=== PATIENT | male | born 1980 | race Caucasian/White ===

== ENCOUNTER 2020-05-02 05:19 | Emergency (ER) | payer OTHER | END 2020-05-02 18:01 | LOC: ED 05:19 | DX: Z02.89 Encounter for other administrative examinations (principal) ==

== ENCOUNTER 2020-05-02 05:19 | Emergency (ER) | payer SELFPAY ==
[~2020-05-02] VITALS: Ht 162.6 cm; Wt 72.6 kg
[2020-05-02 05:31] VITALS: Ht 162.6 cm; Wt 72.6 kg
[2020-05-02 07:49] LABS: BASOPHIL % 0.6 % (0.2-1.5); PLATELET COUNT 226 x10^3mcL (152-348); RED CELL DISTRIBUTION WIDTH 13.7 % (12.1-16.2)
[2020-05-02 07:59] LABS: CALCIUM 8.5 mg/dL (8.5-10.1); CARBON DIOXIDE 26.5 mmol/L (21-32); CHLORIDE SERUM 104 mmol/L (98-107); CREATININE SERUM 0.6 mg/dL (0.7-1.3); GFR1 > 60 mL/min; GLUCOSE SERUM 108 mg/dL (74-106); POTASSIUM SERUM 3.6 mmol/L (3.5-5.1); SODIUM SERUM 141 mmol/L (136-145)
[2020-05-02 08:05] LABS: ALBUMIN 4.2 g/dL (3.4-5.0); ALKALINE PHOSPHATASE 82 U/L (46-116); ALT/SGPT 53 U/L (16-63); AST/SGOT 30 U/L (15-37); BILIRUBIN TOTAL 0.7 mg/dL (0.20-1.00); TOTAL PROTEIN, SERUM 7.4 g/dL (6.4-8.2)
[2020-05-02 10:56] LABS: AMPHETAMINE QUAL UR NONE DETECTED (See below)
[2020-05-02 18:01] VITALS: BP 126/81
== END 2020-05-02 18:01 ==
LOC: ED 05:19
PROVIDERS: Student in an Organized Health Care Education/Training Program
DX: S61.512A Laceration without foreign body of left wrist, initial encounter (principal); S61.511A Laceration without foreign body of right wrist, initial encounter; T71.9XXA Asphyxiation due to unspecified cause, initial encounter; T14.91XA Suicide attempt, initial encounter; F32.9 Major depressive disorder, single episode, unspecified; Z20.828 Contact with and (suspected) exposure to other viral communicable diseases; X83.8XXA Intentional self-harm by other specified means, initial encounter; Y93.89 Activity, other specified; Y92.89 Other specified places as the place of occurrence of the external cause; Y99.8 Other external cause status
CPT/HCPCS: 90715; G0480; J0690; J2001; U0003